=== PATIENT | male | born 1955 | race Caucasian/White ===

== ENCOUNTER 2017-04-05 15:19 | Inpatient (IN) | payer OTHER ==
--- NOTE | 2017-04-05 15:57 | PDOC ---
History of Present Illness - General History Source: Patient Exam Limitations: No Limitations - History of Present Illness Initial Comments: 04/05/17 16:07 The patient is a 61 year old male, with a significant past medical history of, who presents to the emergency department with abdominal pain for about 2 days. The patient reports having constant abdominal pain for about 2 days. He also reports being nauseous and generally week these past 2 days. He denies any recent fevers, chills, headache or dizziness. He denies any recent diarrhea or constipation. He denies any recent chest pain or shortness of breath. He denies any recent dysuria, frequency, urgency or hematuria. Allergies: NKA Past surgical history: None reported. Social History: Nonsmoker. Denies EtOH use and recreational drug use. Primary Care Physician: <Brijesh Oneil - Last Filed: 04/05/17 18:56> <Anita Anderson - Last Filed: 04/05/17 20:06> - General Chief Complaint: Pain, Acute Stated Complaint: Blood Pressure Problem Past History <Brijesh Oneil - Last Filed: 04/05/17 18:56> - Past Medical History Diabetes: Yes GI Disorders: No Disorders: No Liver Disease: No Thyroid Disease: No - Psycho/Social/Smoking Cessation Hx Anxiety: No Suicidal Ideation: No Smoking History: Never smoked Have you smoked in the past 12 months: No Information on smoking cessation initiated: No Hx Alcohol Use: No Drug/Substance Use Hx: No Substance Use Type: None <Anita Anderson - Last Filed: 04/05/17 20:06> - Past Medical History Allergies/Adverse Reactions: Allergies Allergy/AdvReac Type Severity Reaction Status Date / Time No Known Drug Allergies Allergy Verified 04/05/17 15:30 Home Medications: Ambulatory Orders Aspirin Coated [Ecotrin] 81 mg PO DAILY 08/22/12 Atenolol [Tenormin] 50 mg PO DAILY 08/22/12 Docosahexanoic Acid/Epa [Fish Oil Concentrate Softgel] 1 each PO DAILY 08/22/12 Mv,Minerals/FA/Lycopene/Ginkgo [One Daily Men's 50+ Tablet] 1 each PO DAILY 21/11 Sitagliptin Phos/Metformin HCl [Janumet 50-1,000 mg Tablet] 1 each PO BID Valsartan/Hydrochlorothiazide [Diovan Hct 160-25 mg Tablet] 1 combo PO DAILY 21/11 Hydrocodone Bit/Acetaminophen [Vicodin Es 7.5-750] 1 - 2 tab PO QID PRN #0 tablet 08/23/12 Review of Systems - Review of Systems Able to Perform ROS?: Yes Comments:: 04/05/17 16:07 GENERAL/CONSTITUTIONAL: No fever or chills. +weakness. HEAD, EYES, EARS, NOSE AND THROAT: No change in vision. No ear pain or discharge. No sore throat. CARDIOVASCULAR: No chest pain or shortness of breath. RESPIRATORY: No cough, wheezing, or hemoptysis. GASTROINTESTINAL: +abdominal pain and nausea. No vomiting, diarrhea or constipation. GENITOURINARY: No dysuria, frequency, or change in urination. MUSCULOSKELETAL: No joint or muscle swelling or pain. No neck or back pain. SKIN: No rash NEUROLOGIC: No headache, vertigo, loss of consciousness, or change in strength/ sensation. ENDOCRINE: No increased thirst. No abnormal weight change. HEMATOLOGIC/LYMPHATIC: No anemia, easy bleeding, or history of blood clots. ALLERGIC/IMMUNOLOGIC: No hives or skin allergy. <Brijesh Oneil - Last Filed: 04/05/17 18:56> *Physical Exam - Vital Signs Last Vital Signs Temp Pulse Resp BP Pulse Ox 98.4 F 123 H 46 H 74/56 96 04/05/17 15:31 04/05/17 15:31 04/05/17 15:31 04/05/17 15:31 04/05/17 15:31 - Physical Exam Comments: 04/05/17 16:50 GENERAL: Awake, alert, and fully oriented, moderate acute distress and tachypnea HEAD: No signs of trauma EYES: PERRLA, EOMI, sclera anicteric, conjunctiva clear ENT: Auricles normal inspection, hearing grossly normal, nares patent, very dry mucosa NECK: Normal ROM, supple, JVD, or masses LUNGS: Tachypnea with crackles bilateral bases. No wheezes. HEART: +Tachycardia. Regular rate and rhythm, normal S1 and S2, no murmurs, rubs or gallops ABDOMEN: Distended diffusely tender with rebound most at RLQ. Soft,, normoactive bowel sounds. No guarding. No masses EXTREMITIES: Normal range of motion, no edema. No clubbing or cyanosis. No cords, erythema, or tenderness. 2+DP/PT pulses. NEUROLOGICAL: Normal speech,, moves all extremities equally. Speech clear but mild intermittent delirium SKIN: Warm, Dry, normal turgor, no rashes or lesions noted. <Brijesh Oneil - Last Filed: 04/05/17 18:56> - Vital Signs Last Vital Signs Temp Pulse Resp BP Pulse Ox 98.4 F 123 H 46 H 74/56 96 04/05/17 15:31 04/05/17 15:31 04/05/17 15:31 04/05/17 15:31 04/05/17 15:31 <Anita Anderson - Last Filed: 04/05/17 20:06> ED Treatment Course - LABORATORY CBC & Chemistry Diagram: 04/05/17 16:03 04/05/17 16:03 <Brijesh Oneil - Last Filed: 04/05/17 18:56> - LABORATORY CBC & Chemistry Diagram: 04/05/17 16:03 04/05/17 16:03 <Anita Anderson - Last Filed: 04/05/17 20:06> Medical Decision Making - Critical Care Time Total Critical Care Time (minutes): 60 Critical Care Statement: The care of this patient involved high complexity decision making to prevent further life threatening deterioration of the patient 's condition and/or to evalute & treat vital organ system(s) failure or risk of failure. - Medical Decision Making 04/05/17 18:56 Call made to , case discussed. <Brijesh Oneil - Last Filed: 04/05/17 18:56> - Medical Decision Making 04/05/17 15:57 sepsis 04/05/17 17:30 61 yo M with HTN DM here wtih c/o n/v x few days and lower abd pain. today became acutely worse wtih sever abd pain. on arrival to ed pt tachypneic, hypotensive and febrile 102. difficulty answering questions. describe lower abd pain, no urinary complaints. n/v. no prior abd surgeries. no smoking history. diovan, metformin. no prior abd surgeries. on exam pt tachypniec, crackles at bilat bases, abd distended and very tender diffusing with guarding, worrse RLQ, ext WWP. differential: shock from perforated viscus, poss pud, perf appendicitis or diverticulitis. plan bedside TTE to eval for cardiac causes shock, aggressive fluid rescuscitation for hypotension, given 4 L NS. some improvement. abx vanco and zosyn to cover for severe septic shock. bedside gb us wtih stones and sludge , no pericholicystic fluid, no kelly's. ivc not visuzlied. TTE with mild decreased contractility, no rv strain or dilation, no pericardial effusion. ct a/p r/o perf, cxr r/o pna. pt pcp dr. holt paged. 04/05/17 20:02 pt with sudden cardiac arrest after inital bp improved 4 L rescus, ACLS initiated immediately. 2 round epe, one shock, bicarb and calcium ROSC. intubated. central line placed under us guidance right IJ. pt started on levophed and transferred to ct scan d/w dr. holt admits to hospitalist. pt accepted to ICU. awaiting CT for possible surgical diagnosis. accepted. dr. Harvey ICU. d/w hospitalist dr. Gaitan. <Anita Anderson - Last Filed: 04/05/17 20:06> *DC/Admit/Observation/Transfer - Attestations Scribe Attestion: 04/05/17 16:07 Documentation prepared by Brijesh Oneil, acting as chief medical officer for Anita Anderson MD. <Brijesh Oneil - Last Filed: 04/05/17 18:56> - Discharge Dispostion Admit: Yes <Anita Anderson - Last Filed: 04/05/17 20:06> Diagnosis at time of Disposition: Septic shock, Cardiac arrest - Referrals Referrals: Eleazar Holt MD [Primary Care Provider] -
[2017-04-05] MEDS ORDERED: SODIUM CHLORIDE 0.9% 1000 ML INFUS.BAG IV ONE ×3 (16:04→20:31)
[2017-04-05] MEDS ORDERED: ACETAMINOPHEN INJECTION 100 ML IVPB ONE (16:07)
[2017-04-05 16:32] LABS: MCH 28.6 pg (25.7-33.7); MCHC 33.1 g/dl (32.0-35.9); MEAN CELL VOLUME 86.5 fl (80-96); MEAN PLT VOLUME 10.2 fl (7.5-11.1); PLATELET COUNT 44 K/MM3 (134-434); RDW 15.3 % (11.9-15.9); WHITE BLOOD COUNT 12.7 K/mm3 (4.0-10.0)
[2017-04-05 16:33] LABS: VENOUS BLOOD GAS HCO3 13.9 meq/L (19-25); VENOUS PH 7.3 (7.32-7.42)
[2017-04-05] MEDS ORDERED: VANCOMYCIN 1,000 MG in DEXTROSE 5%-WATER - 250 ML IVPB ONE (16:42)
[2017-04-05] MEDS ORDERED: VANCOMYCIN 1 GRAM (PRE-DOCKED) 250 ML IVPB ONE (16:43)
[2017-04-05] MEDS ORDERED: PIPERACILLIN/TAZOB 3.375 GM/50 ML PRE-DOCKED IV ONE (16:43)
[2017-04-05] MEDS ORDERED: PIPERACILLIN/TAZOB 3.375 GM 50 ML IVPB ONE (16:44)
[2017-04-05 16:46] LABS: ALBUMIN 2.7 g/dl (3.4-5.0); BILIRUBIN,TOTAL 4.7 mg/dL (0.2-1.0); CALCIUM 7.6 mg/dL (8.5-10.1); COCKROFT - GAULT 15.25; CREATININE 5.8 mg/dL (0.7-1.3); TOT PROT 5.7 g/dl (6.4-8.2)
[2017-04-05 16:47] LABS: INR 1.78 (0.82-1.09); PROTHROMBIN TIME (PATIENT) 19.8 SEC (9.98-11.88)
[2017-04-05 17:01] LABS: TROPONIN I 0.04 ng/ml (0.00-0.05)
[2017-04-05 17:21] LABS: URINE APPEARANCE CLEAR; URINE BILIRUBIN 1+ (NEGATIVE); URINE GLUCOSE (UA) TRACE (NEGATIVE); URINE KETONE TRACE (NEGATIVE); URINE LEUK ESTERASE NEGATIVE (NEGATIVE); URINE NITRITE NEGATIVE (NEGATIVE); URINE UROBILINOGEN 0.2 E.U/dl E.U./dl (0.2-1.0)
[2017-04-05 17:23] LABS: URINE BLOOD 2+ (NEGATIVE)
[2017-04-05 17:24] LABS: URINE PROTEIN 2+ (NEGATIVE)
[2017-04-05 17:37] LABS: URINE RBC 1 /hpf (0-3)
[2017-04-05 17:38] LABS: URINE BACTERIA RARE /hpf (NONE SEEN); URINE MUCUS RARE; URINE WBC <1 /hpf (3-5)
[2017-04-05] MEDS ORDERED: RAPID SEQUENCE INTUBATION KIT NR ONE (18:07)
[2017-04-05] MEDS ORDERED: CALCIUM CHLORIDE 1 GM/10 ML *DISP.SYRIN ONE (18:13)
[2017-04-05] MEDS ORDERED: LORAZEPAM CARPU-JECT 2 MG/ML DISP.SYRIN ONE (18:30)
[2017-04-05 18:33] LABS: PLATELET ESTIMATE DECREASED (NORMAL)
[2017-04-05] MEDS ORDERED: NOREPINEPHRINE BITARTRATE 4 MG/4 ML ML IV ONE ×2 (18:51→23:25)
[2017-04-05] MEDS ORDERED: NOREPINEPHRINE BITARTRATE 4,000 MCG in DEXTROSE 5%-WATER - 496 ML IV ONE (18:54)
[2017-04-05 19:25] LABS: ARTERIAL BLD GAS O2 SATURATION 93.5 % (90-98.9); ARTERIAL BLOOD GAS BASE EXCESS -17.3 meq/l (-2-2); ARTERIAL BLOOD GAS HCO3 10.6 meq/L (22-26); ARTERIAL BLOOD GAS PO2 92.9 mmHg (80-100)
[2017-04-05 19:26] LABS: ALLENS TEST POSITIVE; ART PUNCT SITE RIGHT RADIAL; ARTERIAL BLOOD GAS pH 7.13 (7.35-7.45); LPM/O2% 100%; MECH. VENT. ESPRIT; PT. ON O2? YES; TYPE OF O2 OT; VENT RATE 14; VT/PRESS 550
[2017-04-05] MEDS ORDERED: LORAZEPAM CARPU-JECT 2 MG/ML DISP.SYRIN IVPUSH ONE (20:39)
--- NOTE | 2017-04-05 21:12 | PN ---
<Ruby Reynolds - Last Filed: 04/05/17 21:12> Teaching Attending Note Name of Resident: Compa Pichardo Critical Care Total Critical Care Time (in minutes): 65 Critical Care Statement: The care of this patient involved high complexity decision making to prevent further life threatening deterioration of the patient 's condition and/or to evalute & treat vital organ system(s) failure or risk of failure. <Natali Vazquez - Last Filed: 04/06/17 04:43> Teaching Attending Note ATTENDING PHYSICIAN STATEMENT I saw and evaluated the patient. I reviewed the resident's note and discussed the case with the resident. I agree with the resident's findings and plan as documented. SUBJECTIVE: 61 yo M presents with abdominal pain and distension for 2 days. In ED, patient arrested and was intubated. Patients family states patient didnt look right yesterday and refused to eat. Patients family endorses nausea but no vomiting. Patients family denies fevers and chills. They state patients doctors discontinued his baby aspirin regimen a few months ago. PCP: Dr. Holt PMHx: HTN, diabetes Surgical Hx: anesthesia for his back. Lidocaine for lower back pain. Lower back cyst. Social Hx: Denies OBJECTIVE: Last Vital Signs Temp Pulse Resp BP Pulse Ox 101.2 F H 127 H 25 H 95/71 100 04/06/17 04:07 04/06/17 04:07 04/06/17 04:07 04/06/17 04:07 04/06/17 04:04 GENERAL: Intubated. Awake, alert, and fully oriented. HEENT: Atraumatic. PERRLA, EOMI. Moist mucosa. No JVD LUNGS: No distress, clear to auscultation bilaterally HEART: Regular rate and rhythm, normal S1 and S2, no murmurs, rubs or gallops, peripheral pulses normal and equal bilaterally. ABDOMEN: Distended, NG tube placed- 400 cc of coffee ground fluid, nontender, diminished bowel sounds. No guarding, no rebound. No masses EXTREMITIES: Normal inspection, Normal range of motion, no edema. No clubbing or Cyanosis. ingrown toenails NEUROLOGICAL: after insertion of NG tube patient became responsive moving all four extremities strength is 4+ in all. SKIN: Warm, Dry, normal turgor, no rashes or lesions noted. CBCD WBC 6.4 K/mm3 (4.0-10.0) 04/06/17 01:48 RBC 3.46 M/mm3 (4.00-5.60) L 04/06/17 01:48 Hgb 10.0 GM/dL (11.7-16.9) L 04/06/17 01:48 Hct 29.9 % (35.4-49) L 04/06/17 01:48 MCV 86.5 fl (80-96) 04/06/17 01:48 MCHC 33.3 g/dl (32.0-35.9) 04/06/17 01:48 RDW 15.0 % (11.9-15.9) 04/06/17 01:48 Plt Count 42 K/MM3 (134-434) L 04/06/17 01:48 MPV 9.3 fl (7.5-11.1) 04/06/17 01:48 CMP Sodium 139 mmol/L (136-145) 04/06/17 01:48 Potassium 4.9 mmol/L (3.5-5.1) 04/06/17 01:48 Chloride 104 mmol/L (98-107) 04/06/17 01:48 Carbon Dioxide 15 mmol/L (21-32) L 04/06/17 01:48 Anion Gap 20 (8-16) H 04/06/17 01:48 BUN 73 mg/dL (7-18) H 04/06/17 01:48 Creatinine 5.9 mg/dL (0.7-1.3) H 04/06/17 01:48 Creat Clearance w eGFR 9.76 (>60) 04/06/17 01:48 Calcium 7.4 mg/dL (8.5-10.1) L 04/06/17 01:48 Total Bilirubin 5.6 mg/dL (0.2-1.0) H 04/06/17 01:48 AST 793 U/L (15-37) H 04/06/17 01:48 ALT 631 U/L (12-78) H 04/06/17 01:48 Alkaline Phosphatase 371 U/L (45-117) H D 04/06/17 01:48 Total Protein 5.0 g/dl (6.4-8.2) L 04/06/17 01:48 Albumin 2.3 g/dl (3.4-5.0) L 04/06/17 01:48 ASSESSMENT AND PLAN: 1.) Sepsis possibly secondary to community acquired pneumonia versus intra abdominal infection. Septic shock s/p cardiac -arrest with DANE -IVF NS @ 125 cc/hr bolus as needed -Levophed titrate as needed -Fentanyl drip 500 mcg/D5W 100 mL -Vancomycin/Zosyn -Echo -Check ammonia level -UA -Urine lytes -Nephrology consult, Dr. Pate called for consideration of urgent dialysis -Monitor K level -ICU consult -Cardiology consult -Case discussed with PMD Dr. Holt -NG tube at low suction -ID consult 2.) Possible GI bleed -Protonix drip -Consider GI consult -Repeat CBC in 12 hours -Consider transfusion if HGB less than 7 3.) Ventilation as per ICU windows server specialist -Trend lactic acid, BMP, and troponin -Repeat ABG 4.) Diabetes -Insulin sliding scale -HGB A1C 5.) Elevated LFTs -Hepatitis panel -Get liver US Documentation is prepared by Natali Vazquez acting as pesticide use medical coordinator for Ruby Reynolds M.D.
[2017-04-05] MEDS: FENTANYL INJECTION 500 MCG in DEXTROSE 5%-WATER - 90 ML IJ SCH (21:18)
--- NOTE | 2017-04-05 21:22 | HP ---
CHIEF COMPLAINT: Abdominal Pain PCP: Dr Holt HISTORY OF PRESENT ILLNESS: 61 year old male with pmh of HTN, HPLD, DM presented to the ED with comaplint of abdominal pain and distention. The pain started 2 days ago and has been worsening since. the pain is diffuse, non radiating, severe. Pt is accompanied by nausea but no vomiting. Pt also complained of weakness, fatigue, malaise, anorexia. Pt had deneis fever, chills, vomiting, diarrhea, constipation, hematochezia, melena, and changes in stool, dysuria, frequency, and hematuria. No cough, chest pain, palpitation or shortness of breath. Upon arrival to the ED, pt had acute worsening of abdominal, fever, tachypnea , hypotension and difficulty answering questions. Pt was received 4 liter of IV fluid and labs were sent. A couple of hours later In the ED patient went into cardiac arrest and had to be resuscitated and intubated. ER course was notable for: (1)fever 102.2, tachypnea 46, hypotension 76/47, wbc 12.6 (2) Xray abdomen, CXR (3) CT abdomen and pelvis Recent Travel: none PAST MEDICAL HISTORY: per HPI PAST SURGICAL HISTORY: Cyst removal in lower back Social History: Smoking:None Alcohol:None Drugs: none Family History: Non contributory Allergies No Known Drug Allergies Allergy (Verified 04/05/17 15:30) HOME MEDICATIONS: Home Medications Medication Instructions Recorded Aspirin Coated [Ecotrin] 81 mg PO DAILY 08/22/12 Atenolol [Tenormin] 50 mg PO DAILY 08/22/12 Docosahexanoic Acid/Epa [Fish Oil 1 each PO DAILY 08/22/12 Concentrate Softgel] Mv,Minerals/FA/Lycopene/Ginkgo 1 each PO DAILY 08/22/12 [One Daily Men's 50+ Tablet] Sitagliptin Phos/Metformin HCl 1 each PO BID 08/22/12 [Janumet 50-1,000 mg Tablet] Valsartan/Hydrochlorothiazide 1 combo PO DAILY 08/22/12 [Diovan Hct 160-25 mg Tablet] Hydrocodone Bit/Acetaminophen 1 - 2 tab PO QID PRN #0 tablet 08/23/12 [Vicodin Es 7.5-750] REVIEW OF SYSTEMS CONSTITUTIONAL: generalized weakness, malaise, loss of appetite Absent: fever, chills, diaphoresis, weight change HEENT: Absent: rhinorrhea, nasal congestion, throat pain, throat swelling, difficulty swallowing, mouth swelling, ear pain, eye pain, visual changes CARDIOVASCULAR: Absent: chest pain, syncope, palpitations, irregular heart rate, lightheadedness , peripheral edema RESPIRATORY: Absent: cough, shortness of breath, dyspnea with exertion, orthopnea, wheezing, stridor, hemoptysis GASTROINTESTINAL:abdominal pain, abdominal distension, nausea, Absent: vomiting, diarrhea, constipation, melena, hematochezia GENITOURINARY: Absent: dysuria, frequency, urgency, hesitancy, hematuria, flank pain, genital pain MUSCULOSKELETAL: Absent: myalgia, arthralgia, joint swelling, back pain, neck pain SKIN: Absent: rash, itching, pallor HEMATOLOGIC/IMMUNOLOGIC: Absent: easy bleeding, easy bruising, lymphadenopathy, frequent infections ENDOCRINE: Absent: unexplained weight gain, unexplained weight loss, heat intolerance, cold intolerance NEUROLOGIC: Absent: headache, focal weakness or paresthesias, dizziness, unsteady gait, seizure, mental status changes, bladder or bowel incontinence PSYCHIATRIC: Absent: anxiety, depression, suicidal or homicidal ideation, hallucinations. PHYSICAL EXAMINATION Vital Signs - 24 hr 04/05/17 04/05/17 20:18 20:23 Pulse Rate [ 126 H Radial] Respiratory 26 H 22 Rate Blood Pressure 123/83 [Right Arm] O2 Sat by Pulse 100 Oximetry (%) GENERAL: Awake, alert, and fully oriented, intubated, calm, follows directions HEAD: Normal with no signs of trauma. EYES: Pupils equal, round and reactive to light, extraocular movements intact, sclera anicteric, conjunctiva clear. No lid lag. EARS, NOSE, THROAT: Ears normal, nares patent, oropharynx clear without exudates. Moist mucous membranes. ET tube 7.5 at 24cm lips on ventilator NECK: Normal range of motion, supple without lymphadenopathy, JVD, or masses. right central line placed with LUNGS: Breath sounds equal, clear to auscultation bilaterally. Bibasilar crackles. No wheezes. No accessory muscle use. HEART: Regular rate and rhythm, normal S1 and S2 without murmur, rub or gallop. ABDOMEN: Soft, very distended, tympanitic, normoactive, diffuse tenderness, bowel sounds, no guarding, no rebound, no masses. No hepatomegaly or splenomegaly. NGT tube with coffee grown emesis MUSCULOSKELETAL: Normal range of motion at all joints. No bony deformities or tenderness. No CVA tenderness. UPPER EXTREMITIES: 2+ pulses, warm, well-perfused. No cyanosis. No clubbing. No peripheral edema. LOWER EXTREMITIES: 2+ pulses, warm, well-perfused. No calf tenderness. No peripheral edema. NEUROLOGICAL: Cranial nerves II-XII intact. moves all extremities, follow directions, normal sensation to light touch, normall reflex to all extremities. PSYCHIATRIC: Cooperative. Good eye contact. Appropriate mood and affect. SKIN: Warm, dry, normal turgor, no rashes or lesions noted, normal capillary refill. CBC, BMP 04/05/17 16:03 04/05/17 16:03 Selected Entries 04/05/17 04/05/17 04/05/17 15:19 15:31 15:45 Temperature 102.2 F H Pulse Rate 123 H Respiratory 46 H Rate Blood Pressure 76/47 [Right Arm] Laboratory Tests 04/05/17 04/05/17 04/05/17 16:03 16:03 16:10 INR 1.78 H ABG pH ABG pCO2 at Pt Temp ABG pO2 at Pt Temp ABG HCO3 Anion Gap 23 H Random Glucose 227 H Lactic Acid 6.062 H* Calcium 7.6 L Total Bilirubin 4.7 H AST 329 H ALT 397 H Alkaline Phosphatase 235 H Creatine Kinase 2795 H CK-MB (CK-2) 33.705 H Troponin I 0.04 Total Protein 5.7 L Albumin 2.7 L 04/05/17 04/05/17 17:47 19:05 INR ABG pH 7.13 L* ABG pCO2 at Pt Temp 32.9 L ABG pO2 at Pt Temp 92.9 ABG HCO3 10.6 L* Anion Gap Random Glucose Lactic Acid 7.030 H* Calcium Total Bilirubin AST ALT Alkaline Phosphatase Creatine Kinase CK-MB (CK-2) Troponin I Total Protein Albumin CT abdomen and pelvis: Over distended stomach within air-fluid level without wall thickening. No free air or free fluid is identified. Significant bilateral perinephric stranding with probable minimal perinephric fluid without evidence of hydroureteronephrosis or an obstructing stone. Bibasal consolidation/ pneumonia and probable trace of bilateral pleural effusion. ASSESSMENT/PLAN: 61 year old male with pmh of HTN, HPLD, DM presented to the ED with complaint of worsening abdominal pain and distention who later arrested, resuscitated and intubated. S/p cardiac arrest with acute resp failure Keep Patient intubated Current Vent setting with TV 600, AC 14, Fio2 100%, PEEP 5 keep O2 sat above 90% ABG CXR in am ECho Cardiac profile and labs in am Fentanyl drip starting at 50 Acute abdomen r/o Perforated Ulcer r/o Ischemic colitis r/o SBO XRay abdomen did not show anything acute CT abdomen done NGT for decompression at LIS Coffee brown emesis from NG tube NPO NS at 150ml/h Dr Benton consulted Septic shock from Unknown origin Could be GI due to severe abdominal complaints Could be pneumonia due to infiltrates and consolidation seen on CT abdomen and CXR Vancomycin and Zosyn ID consult Blood culture urine culture UA negative for infection On levophed 15, please titrate down NS 150 ml/h trend lactate Metabolic acidosis with lactic acidosis IV fluid NS at 150 ml/h trend Latic acid CMP DANE Likely due to cardiac arrest and hypoperfused kidney IV fluid at 150 ml/h urine for lytes, urine for creatine Consider renal consult consider US renal Transaminitis likely form Shock Liver from sepsis r/o acute hepatitis r/o acute cholangitis/cholecystitis r/o pancreatitis Alb[place]arle II score 25-29, with mortality rate 50-67% Bisap score 4, with 13-19% mortality rate Vitaliy's score 6, 40% mortality rate hepatitis panel lipase Will trend LFTs consider US liver FEN Fluid: NS at 150 ml/h Electrolytes : Chemistry in PM Nutrition: NPO DVT prophylaxis: SCD Disposition: admit to ICU Visit type - Emergency Visit Emergency Visit: Yes ED Registration Date: 04/05/17 Care time: The patient presented to the Emergency Department on the above date and was hospitalized for further evaluation of their emergent condition. - New Patient This patient is new to me today: Yes Date on this admission: 04/06/17 - Critical Care Critical Care patient: Yes Total Critical Care Time (in minutes): 50 Critical Care Statement: The care of this patient involved high complexity decision making to prevent further life threatening deterioration of the patient 's condition and/or to evalute & treat vital organ system(s) failure or risk of failure.
[2017-04-05] MEDS ORDERED: SODIUM CHLORIDE 1,000 ML IV SCH (21:30)
[2017-04-05] MEDS ORDERED: PANTOPRAZOLE SODIUM 100 ML IVPB ONE (21:31)
[2017-04-05] MEDS ORDERED: PANTOPRAZOLE SODIUM 80 MG in SODIUM CHLORIDE 100 ML IVPB SCH ×2 (21:45→23:45)
[2017-04-05] MEDS ORDERED: MUPIROCIN 2% TOPICAL OINTMENT FOR DECOLONIZATION NS SCH (22:00)
[2017-04-05] MEDS ORDERED: CHLORHEXIDINE GLUCONATE 4% CLEANSER FOR DECOLONIZATION TP SCH (22:00)
[2017-04-05 22:34] LABS: URINE COLOR LT. YELLOW
[2017-04-05 23:21] LABS: MCH 28.5 pg (25.7-33.7); MCHC 32.8 g/dl (32.0-35.9); MEAN CELL VOLUME 86.9 fl (80-96); MEAN PLT VOLUME 9.9 fl (7.5-11.1); PLATELET COUNT 44 K/MM3 (134-434); WHITE BLOOD COUNT 5.8 K/mm3 (4.0-10.0)
[2017-04-05] MEDS: INSULIN SLIDING SCALE (NOVOLOG) 1 VIAL SQ SCH (23:21)
[2017-04-05] MEDS ORDERED: ACETAMINOPHEN 1000 MG/100 ML VIAL (NON FORMULARY) IVPB PRN (23:28)
[2017-04-05 23:31] LABS: ARTERIAL BLD GAS O2 SATURATION 94.9 % (90-98.9); ARTERIAL BLOOD GAS HCO3 12.4 meq/L (22-26); ARTERIAL BLOOD GAS PO2 93.3 mmHg (80-100)
[2017-04-05 23:32] LABS: ALLENS TEST POSITIVE; ART PUNCT SITE RIGHT BRACHIAL; LPM/O2% 60%; MECH. VENT. YES; PT. ON O2? YES; TYPE OF O2 MECH VENT; VT/PRESS 550
[2017-04-05 23:33] LABS: ARTERIAL BLOOD GAS pH 7.17 (7.35-7.45); VENT RATE 14
[2017-04-05 23:59] LABS: ALBUMIN 2.3 g/dl (3.4-5.0); BILIRUBIN,TOTAL 5.5 mg/dL (0.2-1.0); CALCIUM 7.7 mg/dL (8.5-10.1); COCKROFT - GAULT 15.79; CREATININE 5.6 mg/dL (0.7-1.3); TOT PROT 5.2 g/dl (6.4-8.2)
[2017-04-06] MEDS ORDERED: PROPOFOL 100 ML ONE (00:10)
[2017-04-06] MEDS ORDERED: SODIUM BICARBONATE 8.4% 50 MEQ/50 ML VIAL ONE ×2 (00:13→06:11)
[2017-04-06 00:15] LABS: TROPONIN I 1.28 ng/ml (0.00-0.05)
[2017-04-06] MEDS ORDERED: SODIUM CHLORIDE 0.45% 1,000 ML with SODIUM BICARBONATE 8.4% - 150 MEQ IV SCH ×2 (00:15→06:22)
[2017-04-06] MEDS ORDERED: SODIUM CHLORIDE 0.45% 1,000 ML IV SCH (00:15)
[2017-04-06] MEDS ORDERED: PROPOFOL 100 ML IVPB SCH (00:45)
[2017-04-06] MEDS ORDERED: VASOPRESSIN 50 UNITS in SODIUM CHLORIDE 97.5 ML IVPB SCH (01:00)
[2017-04-06 01:04] LABS: MAGNESIUM 1.6 mg/dL (1.8-2.4); PHOSPHOROUS 7.6 mg/dL (2.5-4.9)
[2017-04-06 01:05] VITALS: BMI 22.7
[2017-04-06] MEDS ORDERED: VASOPRESSIN 20 UNITS/ML VIAL IV ONE (01:07)
[2017-04-06] MEDS: NOREPINEPHRINE BITARTRATE 8,000 MCG in DEXTROSE 5%-WATER - 492 ML IV SCH ×2 (01:12→04:35)
--- NOTE | 2017-04-06 01:43 | CONSULT ---
Consult Consult Specialty:: Pulmonary Critical Care Reason for Consultation:: S/p Arrest, Septic Shock, Multiorgan Failure - History of Present Illness Chief Complaint: Abdominal Pain History of Present Illness: 61 year old male with pmh of HTN, HPLD, DM presented to the ED with complaint of abdominal pain and distention. The pain started 2 days ago and has been worsening since. Pain is diffuse, non radiating, severe and accompanied by nausea but no vomiting. Pt also complained of weakness, fatigue, malaise, anorexia. Pt had deneis fever, chills, vomiting, diarrhea, constipation, hematochezia, melena, and changes in stool, dysuria, frequency, and hematuria. No cough, chest pain, palpitation or shortness of breath. Upon arrival to the ED , pt had acute worsening of abdominal, fever, tachypnea , hypotension and difficulty answering questions. Pt received 4 liter of IV fluid and labs were sent. A couple of hours later in the ED patient went into cardiac arrest and had to be resuscitated and intubated. NGT was placed in ED and approx 400cc of coffee brown drainage was appreciated. CT abd obtained to r/o perforated abdominal viscus which was negative for acute process. Pt then transferred to ICU for further medical care. In ICU pt had increasing pressor requirement, currently on norepi and vaso, oliguric renal failure necessitating bicarbonate gtt, Labs noted for multiorgan dysfunction - History Source History Provided By: Medical Record Limitations to Obtaining History: Clinical Condition - Alcohol/Substance Use Hx Alcohol Use: No - Smoking History Smoking history: Never smoked Have you smoked in the past 12 months: No - Social History Usual Living Arrangement: With Parent Home Medications - Allergies Allergies/Adverse Reactions: Allergies Allergy/AdvReac Type Severity Reaction Status Date / Time No Known Drug Allergies Allergy Verified 04/05/17 15:30 - Home Medications Home Medications: Ambulatory Orders Aspirin Coated [Ecotrin] 81 mg PO DAILY 08/22/12 Atenolol [Tenormin] 50 mg PO DAILY 08/22/12 Docosahexanoic Acid/Epa [Fish Oil Concentrate Softgel] 1 each PO DAILY 08/22/12 Mv,Minerals/FA/Lycopene/Ginkgo [One Daily Men's 50+ Tablet] 1 each PO DAILY 21/11 Sitagliptin Phos/Metformin HCl [Janumet 50-1,000 mg Tablet] 1 each PO BID Valsartan/Hydrochlorothiazide [Diovan Hct 160-25 mg Tablet] 1 combo PO DAILY 21/11 Hydrocodone Bit/Acetaminophen [Vicodin Es 7.5-750] 1 - 2 tab PO QID PRN #0 tablet 08/23/12 Physical Exam Vital Signs: Vital Signs Temperature 100 F H 04/05/17 23:59 Pulse Rate 136 H 04/05/17 23:59 Respiratory Rate 23 04/06/17 00:17 Blood Pressure 107/62 04/05/17 23:59 O2 Sat by Pulse Oximetry (%) 99 04/05/17 23:59 Constitutional: Yes: No Distress, Calm Eyes: Yes: PERRL HENT: Yes: Atraumatic, Normocephalic Neck: Yes: Supple, Trachea Midline Cardiovascular: Yes: Tachycardia, S1, S2 Respiratory: Yes: CTA Bilaterally, Mechanically Ventilated Gastrointestinal: Yes: Distention, Hypoactive Bowel Sounds, Tenderness, Other ( tympanny to percussion x4 quadrants; firmly distended) ...Rectal Exam: Yes: Deferred Renal/: Yes: Wilhelm Present, Other (Anuric) Extremities: Yes: Cool Peripheral Pulses WNL: No (Decreased to B/L LE's) Integumentary: Yes: WNL Neurological: Yes: Other (Sedated) Labs: CBC, BMP 04/05/17 23:00 04/05/17 23:00 CBCD WBC 5.8 K/mm3 (4.0-10.0) D 04/05/17 23:00 RBC 3.51 M/mm3 (4.00-5.60) L 04/05/17 23:00 Hgb 10.0 GM/dL (11.7-16.9) L 04/05/17 23:00 Hct 30.5 % (35.4-49) L 04/05/17 23:00 MCV 86.9 fl (80-96) 04/05/17 23:00 MCHC 32.8 g/dl (32.0-35.9) 04/05/17 23:00 RDW 15.0 % (11.9-15.9) 04/05/17 23:00 Plt Count 44 K/MM3 (134-434) L 04/05/17 23:00 MPV 9.9 fl (7.5-11.1) 04/05/17 23:00 CMP Hepatic Panel Total Bilirubin 5.5 mg/dL (0.2-1.0) H 04/05/17 23:00 AST 722 U/L (15-37) H D 04/05/17 23:00 ALT 592 U/L (12-78) H D 04/05/17 23:00 Alkaline Phosphatase 262 U/L (45-117) H 04/05/17 23:00 Albumin 2.3 g/dl (3.4-5.0) L 04/05/17 23:00 Troponin, BNP 04/05/17 04/05/17 16:03 23:00 Troponin I 0.04 1.28 H* D ABG Results ABG pH 7.17 (7.35-7.45) L* 04/05/17 23:15 ABG pCO2 at Pt Temp 35.9 mmHg (35-45) 04/05/17 23:15 ABG pO2 at Pt Temp 93.3 mmHg (80-100) 04/05/17 23:15 ABG HCO3 12.4 meq/L (22-26) L* 04/05/17 23:15 ABG O2 Sat (Measured) 94.9 % (90-98.9) 04/05/17 23:15 ABG O2 Content 13.8 % vol (15-22) L 04/05/17 23:15 ABG Base Excess -15.0 meq/l (-2-2) L* 04/05/17 23:15 Sodium 139 mmol/L (136-145) 04/05/17 23:00 Potassium 5.4 mmol/L (3.5-5.1) H 04/05/17 23:00 Chloride 105 mmol/L (98-107) 04/05/17 23:00 Carbon Dioxide 14 mmol/L (21-32) L 04/05/17 23:00 Anion Gap 20 (8-16) H 04/05/17 23:00 BUN 72 mg/dL (7-18) H 04/05/17 23:00 Creatinine 5.6 mg/dL (0.7-1.3) H 04/05/17 23:00 Creat Clearance w eGFR 10.37 (>60) 04/05/17 23:00 Calcium 7.7 mg/dL (8.5-10.1) L 04/05/17 23:00 Total Bilirubin 5.5 mg/dL (0.2-1.0) H 04/05/17 23:00 AST 722 U/L (15-37) H D 04/05/17 23:00 ALT 592 U/L (12-78) H D 04/05/17 23:00 Alkaline Phosphatase 262 U/L (45-117) H 04/05/17 23:00 Total Protein 5.2 g/dl (6.4-8.2) L 04/05/17 23:00 Albumin 2.3 g/dl (3.4-5.0) L 04/05/17 23:00 Imaging - Results Chest X-ray: Report Reviewed Cat Scan: Report Reviewed Problem List - Problems (1) Cardiac arrest Code(s): I46.9 - CARDIAC ARREST, CAUSE UNSPECIFIED (2) Septic shock Code(s): A41.9 - SEPSIS, UNSPECIFIED ORGANISM R65.21 - SEVERE SEPSIS WITH SEPTIC SHOCK (3) Multi-organ system dysfunction Code(s): PVI3646 - (4) Acute kidney injury Code(s): N17.9 - ACUTE KIDNEY FAILURE, UNSPECIFIED (5) Transaminitis Code(s): R74.0 - NONSPEC ELEV OF LEVELS OF TRANSAMNS & LACTIC ACID DEHYDRGNSE Assessment/Plan A: 61 year old male with pmh of HTN, HPLD, DM presented to the ED with complaint of abdominal pain and distention with subsequent witnessed cardiac arrest, initiation of acls, intubation with ROSC. Pt now in multiorgan failure s /p arrest and septic shock. Pt transferred to ICU for further medical care. P: -Vent bundle -Fentanyl and propofol for analgosedation, goal RASS (-)3-(-4) -continue pressors for goal map>65 -Cont to trend troponin -Consider Cardiology consult -Protonix gtt -cont to trend LFT's, bili's -Cont to trend cbc -f/u haptoglobin, ldh and fibrinogen -Consider GI consult -NPO -NGT to intermittent wall suction -cont to trend lactate, cpk -wilhelm to bsd -May need vascath and HD, consider Renal Consult -continue bicarb gtt -Cont antibiotics -SCD's and pepcid for prophylaxis Thank you for this interesting consult. Pt is critically ill. CCT 60 mins not including procedures
[2017-04-06] MEDS ORDERED: MAGNESIUM SULF 50% (8.12 MEQ/2 ML-1 GM VIAL) IVPB ONE (02:04)
[2017-04-06 02:06] LABS: MCH 28.8 pg (25.7-33.7); MCHC 33.3 g/dl (32.0-35.9); MEAN CELL VOLUME 86.5 fl (80-96); MEAN PLT VOLUME 9.3 fl (7.5-11.1); PLATELET COUNT 42 K/MM3 (134-434); WHITE BLOOD COUNT 6.4 K/mm3 (4.0-10.0)
[2017-04-06 02:08] LABS: ARTERIAL BLD GAS O2 SATURATION 96.4 % (90-98.9); ARTERIAL BLOOD GAS BASE EXCESS -12.9 meq/l (-2-2); ARTERIAL BLOOD GAS HCO3 13.1 meq/L (22-26); ARTERIAL BLOOD GAS PO2 93.5 mmHg (80-100)
[2017-04-06 02:09] LABS: ALLENS TEST POSITIVE; ART PUNCT SITE LEFT RADIAL; LPM/O2% 60%; MECH. VENT. YES; PT. ON O2? YES; TYPE OF O2 MECH VENT; VENT RATE 14; VT/PRESS 550
[2017-04-06 02:10] LABS: ARTERIAL BLOOD GAS pH 7.24 (7.35-7.45)
[2017-04-06 02:26] LABS: CREATININE 5.9 mg/dL (0.7-1.3)
[2017-04-06 02:28] LABS: MAGNESIUM 1.6 mg/dL (1.8-2.4)
[2017-04-06] MEDS: INSULIN SLIDING SCALE (NOVOLOG) 1 VIAL SQ SCH ×2 (02:39→06:20)
[2017-04-06] MEDS: FENTANYL INJECTION 500 MCG in DEXTROSE 5%-WATER - 90 ML IJ SCH ×2 (02:40→08:01)
[2017-04-06] MEDS ORDERED: MAGNESIUM SULF 50% (8.12 MEQ/2 ML-1 GM VIAL) ONE (02:41)
[2017-04-06 03:03] LABS: ALBUMIN 2.3 g/dl (3.4-5.0); BILIRUBIN,TOTAL 5.6 mg/dL (0.2-1.0); CALCIUM 7.4 mg/dL (8.5-10.1)
[2017-04-06] MEDS ORDERED: NOREPINEPHRINE BITARTRATE 4 MG/4 ML ML IV ONE (04:23)
[2017-04-06] MEDS ORDERED: SODIUM CHLORIDE 1,000 ML IV SCH (04:30)
[2017-04-06] MEDS ORDERED: SODIUM CHLORIDE 0.45% 1,000 ML with SODIUM BICARBONATE 8.4% - 75 MEQ IV SCH (05:28)
[2017-04-06 06:24] LABS: MCHC 33.3 g/dl (32.0-35.9); MEAN CELL VOLUME 87.1 fl (80-96); MEAN PLT VOLUME 10.3 fl (7.5-11.1); RDW 15.2 % (11.9-15.9); WHITE BLOOD COUNT 9.1 K/mm3 (4.0-10.0)
[2017-04-06] MEDS ORDERED: SODIUM BICARBONATE 8.4% 50 MEQ/50 ML DISP.SYRIN IVPUSH ONE (06:25)
[2017-04-06] MEDS ORDERED: PIPERACILLIN/TAZOB 3.375 GM/50 ML PRE-DOCKED IVPB ONE (06:25)
[2017-04-06] MEDS ORDERED: PIPERACILLIN/TAZOB 3.375 GM 50 ML IVPB ONE (06:36)
[2017-04-06 06:39] LABS: INR 1.91 (0.82-1.09); PROTHROMBIN TIME (PATIENT) 21.3 SEC (9.98-11.88)
[2017-04-06] MEDS ORDERED: SODIUM BICARBONATE IVPB SCH (06:39)
[2017-04-06] MEDS ORDERED: SODIUM CHLORIDE 0.45% IVPB SCH (06:39)
[2017-04-06 06:41] LABS: ACTIVATED PTT 43.6 SECONDS (26.9-34.4)
[2017-04-06 07:06] LABS: ALBUMIN 2.1 g/dl (3.4-5.0)
[2017-04-06 07:09] LABS: BILIRUBIN,TOTAL 5.4 mg/dL (0.2-1.0); TOT PROT 4.6 g/dl (6.4-8.2)
[2017-04-06 07:11] LABS: PLATELET COUNT 31 K/MM3 (134-434)
--- NOTE | 2017-04-06 07:14 | PN ---
Physical Exam: SUBJECTIVE: Patient seen and examined OBJECTIVE: Vital Signs Period Temp Pulse Resp BP Sys/Khan Pulse Ox Last 24 Hr 98 F-101.9 F 110-136 17-26 95-127/54-84 99-100 GENERAL: The patient is awake, alert, and fully oriented, in no acute distress. HEAD: Normal with no signs of trauma. EYES: PERRL, extraocular movements intact, sclera anicteric, conjunctiva clear. No ptosis. ENT: Ears normal, nares patent, oropharynx clear without exudates, moist mucous membranes. NECK: Trachea midline, full range of motion, supple. LUNGS: Breath sounds equal, clear to auscultation bilaterally, no wheezes, no crackles, no accessory muscle use. HEART: Regular rate and rhythm, S1, S2 without murmur, rub or gallop. ABDOMEN: Soft, nontender, nondistended, normoactive bowel sounds, no guarding, no rebound, no hepatosplenomegaly, no masses. EXTREMITIES: 2+ pulses, warm, well-perfused, no edema. NEUROLOGICAL: Cranial nerves II through XII grossly intact. Normal speech, gait not observed. PSYCH: Normal mood, normal affect. SKIN: Warm, dry, normal turgor, no rashes or lesions noted Laboratory Results - last 24 hr 04/05/17 04/05/17 04/05/17 23:00 23:00 23:00 WBC 5.8 D RBC 3.51 L Hgb 10.0 L Hct 30.5 L MCV 86.9 MCHC 32.8 RDW 15.0 Plt Count 44 L MPV 9.9 Neutrophils % Lymphocytes % INR PTT (Actin FS) Fibrinogen Puncture Site ABG pH ABG pCO2 at Pt Temp ABG pO2 at Pt Temp ABG HCO3 ABG O2 Sat (Measured) ABG O2 Content ABG Base Excess Rosas Test O2 Delivery Device Oxygen Flow Rate Vent Mode Vent Rate Mechanical Rate PEEP Pressure Support Vent Sodium 139 Potassium 5.4 H Chloride 105 Carbon Dioxide 14 L Anion Gap 20 H BUN 72 H Creatinine 5.6 H Creat Clearance w eGFR 10.37 POC Glucometer Random Glucose 206 H Lactic Acid 3.446 H* Calcium 7.7 L Phosphorus Magnesium Total Bilirubin 5.5 H AST 722 H D ALT 592 H D Alkaline Phosphatase 262 H LD Total Creatine Kinase Creatine Kinase Index CK-MB (CK-2) CK-MB (CK-2) Rel Index Troponin I Total Protein 5.2 L Albumin 2.3 L Total Amylase Lipase 04/05/17 04/05/17 04/05/17 23:00 23:00 23:00 WBC RBC Hgb Hct MCV MCHC RDW Plt Count MPV Neutrophils % Lymphocytes % INR PTT (Actin FS) Fibrinogen Puncture Site ABG pH ABG pCO2 at Pt Temp ABG pO2 at Pt Temp ABG HCO3 ABG O2 Sat (Measured) ABG O2 Content ABG Base Excess Rosas Test O2 Delivery Device Oxygen Flow Rate Vent Mode Vent Rate Mechanical Rate PEEP Pressure Support Vent Sodium Potassium Chloride Carbon Dioxide Anion Gap BUN Creatinine Creat Clearance w eGFR POC Glucometer Random Glucose Lactic Acid Calcium Phosphorus 7.6 H Magnesium 1.6 L Total Bilirubin AST ALT Alkaline Phosphatase LD Total Creatine Kinase 3933 H D Cancelled Creatine Kinase Index 1.6 CK-MB (CK-2) 61.718 H CK-MB (CK-2) Rel Index Cancelled Troponin I 1.28 H* D Total Protein Albumin Total Amylase Lipase 04/05/17 04/05/17 04/06/17 23:03 23:15 01:48 WBC RBC Hgb Hct MCV MCHC RDW Plt Count MPV Neutrophils % Lymphocytes % INR PTT (Actin FS) Fibrinogen Puncture Site Right brachial ABG pH 7.17 L* ABG pCO2 at Pt Temp 35.9 ABG pO2 at Pt Temp 93.3 ABG HCO3 12.4 L* ABG O2 Sat (Measured) 94.9 ABG O2 Content 13.8 L ABG Base Excess -15.0 L* Rosas Test Positive O2 Delivery Device Mech vent Oxygen Flow Rate 60% Vent Mode A/c Vent Rate 14 Mechanical Rate Yes PEEP 5.0 Pressure Support Vent 550 Sodium 139 Potassium 4.9 Chloride 104 Carbon Dioxide 15 L Anion Gap 20 H BUN 73 H Creatinine 5.9 H Creat Clearance w eGFR 9.76 POC Glucometer 201.54124 Random Glucose 152 H D Lactic Acid Calcium 7.4 L Phosphorus 7.0 H Magnesium 1.6 L Total Bilirubin 5.6 H AST 793 H ALT 631 H Alkaline Phosphatase 371 H D LD Total 708 H Creatine Kinase Creatine Kinase Index CK-MB (CK-2) CK-MB (CK-2) Rel Index Troponin I Total Protein 5.0 L Albumin 2.3 L Total Amylase 566 H Lipase 6667 H 04/06/17 04/06/17 04/06/17 01:48 01:48 01:48 WBC 6.4 RBC 3.46 L Hgb 10.0 L Hct 29.9 L MCV 86.5 MCHC 33.3 RDW 15.0 Plt Count 42 L MPV 9.3 Neutrophils % Y Lymphocytes % Y INR PTT (Actin FS) Fibrinogen 767.0 H Puncture Site ABG pH ABG pCO2 at Pt Temp ABG pO2 at Pt Temp ABG HCO3 ABG O2 Sat (Measured) ABG O2 Content ABG Base Excess Rosas Test O2 Delivery Device Oxygen Flow Rate Vent Mode Vent Rate Mechanical Rate PEEP Pressure Support Vent Sodium Potassium Chloride Carbon Dioxide Anion Gap BUN Creatinine Creat Clearance w eGFR POC Glucometer Random Glucose Lactic Acid 3.211 H* Calcium Phosphorus Magnesium Total Bilirubin AST ALT Alkaline Phosphatase LD Total Creatine Kinase Creatine Kinase Index CK-MB (CK-2) CK-MB (CK-2) Rel Index Troponin I Total Protein Albumin Total Amylase Lipase 04/06/17 04/06/17 04/06/17 02:00 02:06 04:08 WBC RBC Hgb Hct MCV MCHC RDW Plt Count MPV Neutrophils % Lymphocytes % INR PTT (Actin FS) Fibrinogen Puncture Site Left radial ABG pH 7.24 L* ABG pCO2 at Pt Temp 31.5 L ABG pO2 at Pt Temp 93.5 ABG HCO3 13.1 L* ABG O2 Sat (Measured) 96.4 ABG O2 Content 13.6 L ABG Base Excess -12.9 L* Rosas Test Positive O2 Delivery Device Mech vent Oxygen Flow Rate 60% Vent Mode A/c Vent Rate 14 Mechanical Rate Yes PEEP 5.0 Pressure Support Vent 550 Sodium Potassium Chloride Carbon Dioxide Anion Gap BUN Creatinine Creat Clearance w eGFR POC Glucometer 152.48912 Random Glucose Lactic Acid 4.680 H* Calcium Phosphorus Magnesium Total Bilirubin AST ALT Alkaline Phosphatase LD Total Creatine Kinase Creatine Kinase Index CK-MB (CK-2) CK-MB (CK-2) Rel Index Troponin I Total Protein Albumin Total Amylase Lipase 04/06/17 04/06/17 04/06/17 05:55 05:55 05:55 WBC 9.1 D RBC 3.12 L Hgb 9.1 L Hct 27.2 L MCV 87.1 MCHC 33.3 RDW 15.2 Plt Count 31 L* D MPV 10.3 D Neutrophils % Lymphocytes % INR 1.91 H PTT (Actin FS) 43.6 H Fibrinogen Puncture Site ABG pH ABG pCO2 at Pt Temp ABG pO2 at Pt Temp ABG HCO3 ABG O2 Sat (Measured) ABG O2 Content ABG Base Excess Rosas Test O2 Delivery Device Oxygen Flow Rate Vent Mode Vent Rate Mechanical Rate PEEP Pressure Support Vent Sodium Potassium Chloride Carbon Dioxide Anion Gap BUN Creatinine Creat Clearance w eGFR POC Glucometer Random Glucose Lactic Acid 6.675 H* Calcium Phosphorus Magnesium Total Bilirubin AST ALT Alkaline Phosphatase LD Total Creatine Kinase Creatine Kinase Index CK-MB (CK-2) CK-MB (CK-2) Rel Index Troponin I Total Protein Albumin Total Amylase Lipase 04/06/17 05:55 WBC RBC Hgb Hct MCV MCHC RDW Plt Count MPV Neutrophils % Lymphocytes % INR PTT (Actin FS) Fibrinogen Puncture Site ABG pH ABG pCO2 at Pt Temp ABG pO2 at Pt Temp ABG HCO3 ABG O2 Sat (Measured) ABG O2 Content ABG Base Excess Rosas Test O2 Delivery Device Oxygen Flow Rate Vent Mode Vent Rate Mechanical Rate PEEP Pressure Support Vent Sodium Potassium Chloride Carbon Dioxide Anion Gap BUN Creatinine Creat Clearance w eGFR POC Glucometer 140.74683 Random Glucose Lactic Acid Calcium Phosphorus Magnesium Total Bilirubin AST ALT Alkaline Phosphatase LD Total Creatine Kinase Creatine Kinase Index CK-MB (CK-2) CK-MB (CK-2) Rel Index Troponin I Total Protein Albumin Total Amylase Lipase Active Medications Generic Name Dose Route Start Last Admin Trade Name Freq PRN Reason Stop Dose Admin Chlorhexidine Gluconate 1 applic 04/05/17 22:00 04/05/17 23:21 Hibiclens For Decolonization - TP 1 applic HS ALIZA Administration Fentanyl 500 mcg/ Dextrose 100 mls @ 5 mls/hr 04/05/17 21:15 04/06/17 02:40 IJ 20 mls/hr TITR ALIZA Administration Protocol 25 MCG/HR Pantoprazole Sodium 80 mg/ 100 mls @ 10 mls/hr 04/05/17 21:45 04/05/17 23:52 Sodium Chloride IVPB 10 mls/hr Q10H ALIZA Administration 8 MG/HR Propofol 100 mls @ 2.449 mls/hr 04/06/17 00:45 04/06/17 00:39 Diprivan - IVPB 4.899 mls/hr TITR ALIZA Administration Protocol 5 MCG/KG/MIN Norepinephrine Bitartrate 8, 500 mls @ 18.75 mls/hr 04/06/17 01:00 04/06/17 06: 35 000 mcg/ Dextrose IV 25 mcg/min TITR ALIZA Titration Protocol 5 MCG/MIN Vasopressin 50 units/ Sodium 100 mls @ 4 mls/hr 04/06/17 01:00 04/06/17 04:35 Chloride IVPB 4 units/hr ASDIR ALIZA Titration Protocol 2 UNITS/HR Famotidine/Sodium Chloride 50 mls @ 100 mls/hr 04/06/17 10:00 Pepcid 20 Mg Premixed Ivpb - IVPB DAILY ALIZA Sodium Bicarbonate 150 meq/ 1,150 mls @ 125 mls/hr 04/06/17 06:39 Sodium Chloride IVPB ASDIR ALIZA Insulin Aspart 1 vial 04/05/17 22:00 04/06/17 06:20 Novolog Vial Sliding Scale - SQ Not Given Q4H-IV ALIZA Protocol Mupirocin 1 applic 04/05/17 22:00 04/05/17 23:53 Bactroban Ointment (For Decolonization) - NS 04/10/17 21:59 1 applic BID ALIZA Administration ASSESSMENT/PLAN:
[2017-04-06 07:34] LABS: TROPONIN I 2.75 ng/ml (0.00-0.05)
[2017-04-06 07:35] LABS: ARTERIAL BLOOD GAS HCO3 10.3 meq/L (22-26)
[2017-04-06 07:37] LABS: ALLENS TEST POSITIVE; ART PUNCT SITE LEFT BRACHIAL; LPM/O2% 60%; MECH. VENT. YES; PT. ON O2? YES; TYPE OF O2 VENT; VENT RATE 25; VT/PRESS 550
[2017-04-06 07:39] LABS: ARTERIAL BLOOD GAS pH 7.22 (7.35-7.45)
[2017-04-06 07:45] VITALS: PULSE 112
[2017-04-06 08:03] VITALS: BP 106/78; TEMP 97.3
[2017-04-06] MEDS ORDERED: SODIUM BICARBONATE 8.4% - 100 ML ONE (08:48)
--- NOTE | 2017-04-06 09:28 | RAPID ---
Physical Examination Vital Signs: Vital Signs Temperature 97.3 F L 04/06/17 08:03 Pulse Rate 112 H 04/06/17 08:03 Respiratory Rate 25 H 04/06/17 08:03 Blood Pressure 106/78 04/06/17 08:03 O2 Sat by Pulse Oximetry (%) 100 04/06/17 08:00 Labs: CBC, BMP 04/06/17 05:55 04/06/17 05:55 Rapid Response - Rapid Response Assessment: Code 99 was called. Code team responded to the code. Patient was in the ICU in bed 6. At 8:32am patient was found by the RN to be in bradycardia, 1mg of Atropine was given. However, patient had no pulse. ACLS protocol was initiated and followed at 8:34 am. Patient was defibrillated 5 times. Patient continued to have wide complex irregular non perfusing rhythm. Pronounced at 8:56am. Patient's mother who is the Health care proxy Tarsha Winchester was called at 8:45am ([phone]) and informed of the ongoing CPR and the patient was critical. She mentioned her son was present at home and would come to the hospital immediately. Detailed resuscitation record is attached in the chart.
--- NOTE | 2017-04-06 09:46 | PN ---
Teaching Attending Note Name of Resident: Gabi Acosta ATTENDING PHYSICIAN STATEMENT I saw and evaluated the patient. I reviewed the resident's note and discussed the case with the resident. I agree with the resident's findings and plan as documented. Patient was admitted overnight for septic shock and was coded in Emergency , intubated and pressors were initiated and septic protocol was followed. Patient coded again at 8:34am and was found to be bradycardic at 8:32am. ACLS protocol followed. detail information written in the code record. Patient was pronounced at 8:56am.
[2017-04-06] MEDS ORDERED: FAMOTIDINE 20 MG/50 ML IVPB 50 ML IVPB SCH (10:00)
--- NOTE | 2017-04-06 10:18 | DS ---
Physical Exam: SUBJECTIVE: Patient was admitted overnight. Patient started coding before seeing him this morning. OBJECTIVE: Vital Signs Period Temp Pulse Resp BP Sys/Khan Pulse Ox Last 24 Hr 97.2 F-101.9 F 110-136 17-26 95-127/54-84 99-100 PHYSICAL EXAM LABS Laboratory Results - last 24 hr 04/05/17 04/05/17 04/05/17 23:00 23:00 23:00 WBC 5.8 D RBC 3.51 L Hgb 10.0 L Hct 30.5 L MCV 86.9 MCHC 32.8 RDW 15.0 Plt Count 44 L MPV 9.9 Neutrophils % Lymphocytes % Monocytes % Eosinophils % Band Neutrophils INR PTT (Actin FS) Fibrinogen Puncture Site ABG pH ABG pCO2 at Pt Temp ABG pO2 at Pt Temp ABG HCO3 ABG O2 Sat (Measured) ABG O2 Content ABG Base Excess Rosas Test O2 Delivery Device Oxygen Flow Rate Vent Mode Vent Rate Mechanical Rate PEEP Pressure Support Vent Sodium 139 Potassium 5.4 H Chloride 105 Carbon Dioxide 14 L Anion Gap 20 H BUN 72 H Creatinine 5.6 H Creat Clearance w eGFR 10.37 POC Glucometer Random Glucose 206 H Lactic Acid 3.446 H* Calcium 7.7 L Phosphorus Magnesium Total Bilirubin 5.5 H AST 722 H D ALT 592 H D Alkaline Phosphatase 262 H LD Total Creatine Kinase Creatine Kinase Index CK-MB (CK-2) CK-MB (CK-2) Rel Index Troponin I Total Protein 5.2 L Albumin 2.3 L Total Amylase Lipase 04/05/17 04/05/17 04/05/17 23:00 23:00 23:00 WBC RBC Hgb Hct MCV MCHC RDW Plt Count MPV Neutrophils % Lymphocytes % Monocytes % Eosinophils % Band Neutrophils INR PTT (Actin FS) Fibrinogen Puncture Site ABG pH ABG pCO2 at Pt Temp ABG pO2 at Pt Temp ABG HCO3 ABG O2 Sat (Measured) ABG O2 Content ABG Base Excess Rosas Test O2 Delivery Device Oxygen Flow Rate Vent Mode Vent Rate Mechanical Rate PEEP Pressure Support Vent Sodium Potassium Chloride Carbon Dioxide Anion Gap BUN Creatinine Creat Clearance w eGFR POC Glucometer Random Glucose Lactic Acid Calcium Phosphorus 7.6 H Magnesium 1.6 L Total Bilirubin AST ALT Alkaline Phosphatase LD Total Creatine Kinase 3933 H D Cancelled Creatine Kinase Index 1.6 CK-MB (CK-2) 61.718 H CK-MB (CK-2) Rel Index Cancelled Troponin I 1.28 H* D Total Protein Albumin Total Amylase Lipase 04/05/17 04/05/17 04/06/17 23:03 23:15 01:48 WBC RBC Hgb Hct MCV MCHC RDW Plt Count MPV Neutrophils % Lymphocytes % Monocytes % Eosinophils % Band Neutrophils INR PTT (Actin FS) Fibrinogen Puncture Site Right brachial ABG pH 7.17 L* ABG pCO2 at Pt Temp 35.9 ABG pO2 at Pt Temp 93.3 ABG HCO3 12.4 L* ABG O2 Sat (Measured) 94.9 ABG O2 Content 13.8 L ABG Base Excess -15.0 L* Rosas Test Positive O2 Delivery Device Mech vent Oxygen Flow Rate 60% Vent Mode A/c Vent Rate 14 Mechanical Rate Yes PEEP 5.0 Pressure Support Vent 550 Sodium 139 Potassium 4.9 Chloride 104 Carbon Dioxide 15 L Anion Gap 20 H BUN 73 H Creatinine 5.9 H Creat Clearance w eGFR 9.76 POC Glucometer 201.64011 Random Glucose 152 H D Lactic Acid Calcium 7.4 L Phosphorus 7.0 H Magnesium 1.6 L Total Bilirubin 5.6 H AST 793 H ALT 631 H Alkaline Phosphatase 371 H D LD Total 708 H Creatine Kinase Creatine Kinase Index CK-MB (CK-2) CK-MB (CK-2) Rel Index Troponin I Total Protein 5.0 L Albumin 2.3 L Total Amylase 566 H Lipase 6667 H 04/06/17 04/06/17 04/06/17 01:48 01:48 01:48 WBC 6.4 RBC 3.46 L Hgb 10.0 L Hct 29.9 L MCV 86.5 MCHC 33.3 RDW 15.0 Plt Count 42 L MPV 9.3 Neutrophils % 62.0 D Lymphocytes % 12.0 D Monocytes % 5.0 Eosinophils % 1.0 Band Neutrophils 20.0 H D INR PTT (Actin FS) Fibrinogen 767.0 H Puncture Site ABG pH ABG pCO2 at Pt Temp ABG pO2 at Pt Temp ABG HCO3 ABG O2 Sat (Measured) ABG O2 Content ABG Base Excess Rosas Test O2 Delivery Device Oxygen Flow Rate Vent Mode Vent Rate Mechanical Rate PEEP Pressure Support Vent Sodium Potassium Chloride Carbon Dioxide Anion Gap BUN Creatinine Creat Clearance w eGFR POC Glucometer Random Glucose Lactic Acid 3.211 H* Calcium Phosphorus Magnesium Total Bilirubin AST ALT Alkaline Phosphatase LD Total Creatine Kinase Creatine Kinase Index CK-MB (CK-2) CK-MB (CK-2) Rel Index Troponin I Total Protein Albumin Total Amylase Lipase 04/06/17 04/06/17 04/06/17 02:00 02:06 04:08 WBC RBC Hgb Hct MCV MCHC RDW Plt Count MPV Neutrophils % Lymphocytes % Monocytes % Eosinophils % Band Neutrophils INR PTT (Actin FS) Fibrinogen Puncture Site Left radial ABG pH 7.24 L* ABG pCO2 at Pt Temp 31.5 L ABG pO2 at Pt Temp 93.5 ABG HCO3 13.1 L* ABG O2 Sat (Measured) 96.4 ABG O2 Content 13.6 L ABG Base Excess -12.9 L* Rosas Test Positive O2 Delivery Device Mech vent Oxygen Flow Rate 60% Vent Mode A/c Vent Rate 14 Mechanical Rate Yes PEEP 5.0 Pressure Support Vent 550 Sodium Potassium Chloride Carbon Dioxide Anion Gap BUN Creatinine Creat Clearance w eGFR POC Glucometer 152.79163 Random Glucose Lactic Acid 4.680 H* Calcium Phosphorus Magnesium Total Bilirubin AST ALT Alkaline Phosphatase LD Total Creatine Kinase Creatine Kinase Index CK-MB (CK-2) CK-MB (CK-2) Rel Index Troponin I Total Protein Albumin Total Amylase Lipase 04/06/17 04/06/17 04/06/17 05:55 05:55 05:55 WBC 9.1 D RBC 3.12 L Hgb 9.1 L Hct 27.2 L MCV 87.1 MCHC 33.3 RDW 15.2 Plt Count 31 L* D MPV 10.3 D Neutrophils % Lymphocytes % Monocytes % Eosinophils % Band Neutrophils INR 1.91 H PTT (Actin FS) 43.6 H Fibrinogen Puncture Site ABG pH ABG pCO2 at Pt Temp ABG pO2 at Pt Temp ABG HCO3 ABG O2 Sat (Measured) ABG O2 Content ABG Base Excess Rosas Test O2 Delivery Device Oxygen Flow Rate Vent Mode Vent Rate Mechanical Rate PEEP Pressure Support Vent Sodium 139 Potassium 4.6 Chloride 106 Carbon Dioxide 14 L Anion Gap 19 H BUN 75 H Creatinine 6.0 H Creat Clearance w eGFR 9.58 POC Glucometer Random Glucose 144 H Lactic Acid Calcium 7.0 L Phosphorus Magnesium Total Bilirubin 5.4 H AST 811 H ALT 644 H Alkaline Phosphatase 313 H LD Total Creatine Kinase Creatine Kinase Index CK-MB (CK-2) CK-MB (CK-2) Rel Index Troponin I Total Protein 4.6 L Albumin 2.1 L Total Amylase Lipase 04/06/17 04/06/17 04/06/17 05:55 05:55 05:55 WBC RBC Hgb Hct MCV MCHC RDW Plt Count MPV Neutrophils % Lymphocytes % Monocytes % Eosinophils % Band Neutrophils INR PTT (Actin FS) Fibrinogen Puncture Site ABG pH ABG pCO2 at Pt Temp ABG pO2 at Pt Temp ABG HCO3 ABG O2 Sat (Measured) ABG O2 Content ABG Base Excess Rosas Test O2 Delivery Device Oxygen Flow Rate Vent Mode Vent Rate Mechanical Rate PEEP Pressure Support Vent Sodium Potassium Chloride Carbon Dioxide Anion Gap BUN Creatinine Creat Clearance w eGFR POC Glucometer 140.19269 Random Glucose Lactic Acid 6.675 H* Calcium Phosphorus Magnesium Total Bilirubin AST ALT Alkaline Phosphatase LD Total Creatine Kinase 3247 H Creatine Kinase Index CK-MB (CK-2) CK-MB (CK-2) Rel Index Troponin I 2.75 H* D Total Protein Albumin Total Amylase Lipase 04/06/17 04/06/17 05:55 07:20 WBC RBC Hgb Hct MCV MCHC RDW Plt Count MPV Neutrophils % Lymphocytes % Monocytes % Eosinophils % Band Neutrophils INR PTT (Actin FS) Fibrinogen Puncture Site Left brachial ABG pH 7.22 L* ABG pCO2 at Pt Temp 26.3 L ABG pO2 at Pt Temp 108.0 H ABG HCO3 10.3 L* ABG O2 Sat (Measured) 97.0 ABG O2 Content 14.8 L ABG Base Excess -16.0 L* Rosas Test Positive O2 Delivery Device Vent Oxygen Flow Rate 60% Vent Mode A/c Vent Rate 25 Mechanical Rate Yes PEEP 5.0 Pressure Support Vent 550 Sodium Potassium Chloride Carbon Dioxide Anion Gap BUN Creatinine Creat Clearance w eGFR POC Glucometer Random Glucose Lactic Acid Calcium Phosphorus Magnesium Total Bilirubin AST ALT Alkaline Phosphatase LD Total Creatine Kinase Creatine Kinase Index CK-MB (CK-2) CK-MB (CK-2) Rel Index Cancelled Troponin I Total Protein Albumin Total Amylase Lipase HOSPITAL COURSE: Date of Admission:04/05/17 Date of Discharge: 04/06/17 Patient is a 61-year-old male with a significant past medical history of HTN, Hyperlipidemia and DM presented to the ED with the chief complaint of abdominal pain and distention and admitted for the evaluation of abdominal pain. Was found to be in Septic shock and acute respiratory failure. Upon arrival to the ED, patient had acute worsening of abdominal, fever, tachypnea , hypotension and difficulty answering questions. Pt received 4 liter of IV fluid. A couple of hours later In the ED patient went into cardiac arrest and had to be resuscitated and intubated. Patient was then tranferred to the ICU. Multiple imagings were done: CT abdomen/Pelvis revealed: Over distended stomach within air-fluid level without wall thickening. No free air or free fluid is identified. Significant bilateral perinephric stranding with probable minimal perinephric fluid without evidence of hydroureteronephrosis or an obstructing stone. Bibasal consolidation/pneumonia and probable trace of bilateral pleural effusion. Duplex of lower extremity revealed: Moderate atherosclerotic disease without evidence of DVT. Renal ultrasound was negative for any acute pathology. Patient was sedated, intubated on a ventilator in the ICU. Was treated with IV fluids, IV antibiotics. GI and Renal consult was requested. But before the specialists saw the patient, his vitals became unstable and he started deteriorating. This morning, code 99 was called. Code team responded to the code. Patient was in the ICU in bed 6. At 8:32am patient was found by the RN to be in bradycardia, 1mg of Atropine was given. However, patient had no pulse. ACLS protocol was initiated and followed at 8:34 am. Patient was defibrillated 5 times during code. Patient continued to have wide complex irregular non perfusing rhythm. Resusciation was not successful. Patient was pronounced at 8:56am. Patient's mother who is the Health care proxy Tarsha Winchester was called at 8:45am ([phone]) and informed of the ongoing CPR and the patient was critical. She mentioned her son was present at home and would come to the hospital immediately. However, before the family members arrived, patient . Called the mother again to inform about the of the patient at 8:59am, but couldn't reach. Patient's family members arrived after the patient was . Pastoral care team were present at bed side for counseling. Detailed resuscitation record is attached in the chart. Minutes to complete discharge: 45 Discharge Summary Reason For Visit: CARDIAC ARREST/SPETIC SHOCK Current Active Problems Acute kidney injury (Acute) Cardiac arrest (Acute) Multi-organ system dysfunction (Acute) Septic shock (Acute) Transaminitis (Acute) - Instructions Referrals: Eleazar Holt MD [Primary Care Provider] - Disposition: - Home Medications Comprehensive Discharge Medication List: Ambulatory Orders Aspirin Coated [Ecotrin] 81 mg PO DAILY 08/22/12 Atenolol [Tenormin] 50 mg PO DAILY 08/22/12 Docosahexanoic Acid/Epa [Fish Oil Concentrate Softgel] 1 each PO DAILY 08/22/12 Mv,Minerals/FA/Lycopene/Ginkgo [One Daily Men's 50+ Tablet] 1 each PO DAILY 21/11 Sitagliptin Phos/Metformin HCl [Janumet 50-1,000 mg Tablet] 1 each PO BID Valsartan/Hydrochlorothiazide [Diovan Hct 160-25 mg Tablet] 1 combo PO DAILY 21/11 Hydrocodone Bit/Acetaminophen [Vicodin Es 7.5-750] 1 - 2 tab PO QID PRN #0 tablet 08/23/12 This patient is new to me today: Yes Date on this admission: 04/05/17 Emergency Visit: Yes ED Registration Date: 04/05/17 Care time: The patient presented to the Emergency Department on the above date and was hospitalized for further evaluation of their emergent condition. Critical Care patient: No - Discharge Referral Referred to [facility] No
--- NOTE | 2017-04-06 12:42 | EKG ---
Test Reason : Blood Pressure : / mmHG Vent. Rate : 156 BPM Atrial Rate : 312 BPM P-R Int : 000 ms QRS Dur : 114 ms QT Int : 336 ms P-R-T Axes : 000 -19 081 degrees QTc Int : 541 ms SUPRAVENTRICULAR TACHYCARDIA NONSPECIFIC ST ABNORMALITY ABNORMAL ECG Confirmed by TK STEEN MD ([id number]) on 04/06/2017 12:42:41 PM Referred By: Confirmed By:TK STEEN MD
--- NOTE | 2017-04-06 12:44 | EKG ---
Test Reason : Blood Pressure : / mmHG Vent. Rate : 117 BPM Atrial Rate : 117 BPM P-R Int : 126 ms QRS Dur : 100 ms QT Int : 316 ms P-R-T Axes : -07 -54 080 degrees QTc Int : 440 ms SINUS TACHYCARDIA LEFT ANTERIOR FASCICULAR BLOCK NONSPECIFIC ST AND T WAVE ABNORMALITY ABNORMAL ECG NO PREVIOUS ECGS AVAILABLE Confirmed by TK STEEN MD ([id number]) on 04/06/2017 12:44:06 PM Referred By: Confirmed By:TK STEEN MD
== END 2017-04-06 08:56 | disposition expired | DRG 871 ==
LOC: JER 15:19 → JERBED 20:06 → UNDOADMIN 20:14 → JICU 22:28
PROVIDERS: ADMIT Internal Medicine; ATTEND Internal Medicine
PROC: 5A12012 Performance of Cardiac Output, Single, Manual (ICD-10-PCS; principal; 2017-04-05)
PROC: 5A1935Z Respiratory Ventilation, Less than 24 Consecutive Hours (ICD-10-PCS; 2017-04-05)
PROC: 0BH17EZ Insertion of Endotracheal Airway into Trachea, Via Natural or Artificial Opening (ICD-10-PCS; 2017-04-05)
PROC: 0D9670Z Drainage of Stomach with Drainage Device, Via Natural or Artificial Opening (ICD-10-PCS; 2017-04-05)
PROC: 5A12012 Performance of Cardiac Output, Single, Manual (ICD-10-PCS; 2017-04-06)
DX: A41.9 Sepsis, unspecified organism (principal); R65.21 Severe sepsis with septic shock; J96.00 Acute respiratory failure, unspecified whether with hypoxia or hypercapnia; K72.00 Acute and subacute hepatic failure without coma; N17.9 Acute kidney failure, unspecified; E87.2 Acidosis; I10 Essential (primary) hypertension; I95.9 Hypotension, unspecified; I46.9 Cardiac arrest, cause unspecified; E11.9 Type 2 diabetes mellitus without complications; R11.0 Nausea; R10.0 Acute abdomen; R74.0 Nonspecific elevation of levels of transaminase and lactic acid dehydrogenase [LDH]; R00.1 Bradycardia, unspecified
CPT/HCPCS: 31500; 36415; 36600; 71010-TC; 74020-TC; 74176-TC; 76775-TC; 80053; 80074; 81003; 81015; 82150; 82550; 82553; 82803; 83010; 83605; 83615; 83690; 83735; 84100; 84484; 85025; 85027; 85384; 85610; 85730; 86850; 86900; 86901; 87040; 87086; 87186; 93005; 93010; 93925-TC; 94002; 99285-25